=== PATIENT | male | born 1990 | race African-American/Black ===

== ENCOUNTER 2021-02-23 20:14 | Emergency (ER) | payer BC, SELFPAY | END 2021-02-23 20:45 | disposition home or self-care (01) | LOC: BURERS 20:14 | DX: G56.22 Lesion of ulnar nerve, left upper limb (principal); F17.210 Nicotine dependence, cigarettes, uncomplicated | CPT/HCPCS: 99281 ==

== ENCOUNTER 2021-03-19 21:04 | Emergency (ER) | payer BC ==
[2021-03-19] MEDS ORDERED: Dicyclomine 20 MG TAB ONE (21:43)
[2021-03-19] MEDS ORDERED: Ondansetron ODT 4 MG TAB ONE (21:43)
[2021-03-19] MEDS ORDERED: Mag-Al Plus 1200 MG/1200 MG/120 MG/30 ML UDCUP ONE (21:44)
[2021-03-19] MEDS ORDERED: Milk Of Magnesia 30 ML UDCUP ONE (21:44)
[2021-03-19] MEDS ORDERED: Lidocaine Viscous Sol 2% 15 ml UD Cup ONE (21:44)
[2021-03-19 22:48] LABS: #Basophils 0.1 thou/uL (0.0-0.2); #Eosinphils 0.3 thou/uL (0.0-0.7); #Lymphocytes 1.6 thou/uL (1.20-3.40); #Monocytes 0.5 thou/uL (0.11-0.59); #Neutrophils 3.1 thou/uL (1.40-6.50); %Eosinophils 5.3 % (0.0-10.0); %Lymphocytes 28.3 % (21.0-51.0); %Monocytes 8.2 % (0.0-10.0); %Neutrophils 56.1 % (42.0-75.0); Hemoglobin 14.6 g/dL (14.0-18.0); Mean Corpuscular Hemoglobin 31.3 pg (27.0-31.0); Mean Corpuscular Volume 89.4 fL (78.0-98.0); Mean Platelet Volume 8.9 fL (7.4-10.4); Platelet Count 214 thou/uL (130-400); RBC Distribution Width 11.5 % (11.5-14.5); Red Blood Cell (RBC) Count 4.67 mill/uL (4.70-6.10); White Blood Cell (WBC) Count 5.5 thou/uL (4.8-10.8)
[2021-03-19 23:08] LABS: ALT (SGPT) 18 U/L (8-55); AST (SGOT) 22 U/L (5-34); Albumin 4.1 g/dL (3.5-5.0); Alkaline Phosphatase 54 U/L (40-110); Anion Gap 16 mmol/L (10-20); BUN (Urea Nitrogen) 9 mg/dL (8.9-20.6); Bilirubin, Total 0.5 mg/dL (0.2-1.2); Calc. Creatinine Clearance 0 mL/min (70-130); Calcium 9.2 mg/dL (7.8-10.44); Carbon Dioxide 22 mmol/L (22-29); Chloride 105 mmol/L (98-107); Globulin 2.5 g/dL (2.4-3.5); Glucose 110 mg/dL (70-105); Lipase 25 U/L (8-78); Potassium 3.7 mmol/L (3.5-5.1); Protein, Total 6.6 g/dL (6.0-8.3); Sodium 139 mmol/L (136-145)
== END 2021-03-19 23:22 | disposition home or self-care (01) ==
LOC: BURERS 21:04
DX: K29.70 Gastritis, unspecified, without bleeding (principal); K08.89 Other specified disorders of teeth and supporting structures; R00.1 Bradycardia, unspecified; F17.210 Nicotine dependence, cigarettes, uncomplicated; Z79.899 Other long term (current) drug therapy
CPT/HCPCS: 80053; 83690; 85025; 93005; Q0162

== ENCOUNTER 2022-09-15 18:06 | Emergency (ER) | payer SELFPAY ==
[2022-09-15] MEDS ORDERED: Penicillin V Potassium 250 MG TAB ONE (18:59)
[2022-09-15] MEDS ORDERED: HYDROcodone/Acetaminophen 5/325 mg Tablet ONE (18:59)
== END 2022-09-15 19:02 | disposition home or self-care (01) ==
LOC: BURERS 18:06
DX: K08.89 Other specified disorders of teeth and supporting structures (principal); F17.210 Nicotine dependence, cigarettes, uncomplicated
CPT/HCPCS: 99282

== ENCOUNTER 2022-10-01 22:06 | Emergency (ER) | payer SELFPAY ==
[2022-10-01 23:09] LABS: Bilirubin Negative (Negative); Blood, Urine Small (Negative); Clarity Clear (Clear); Glucose, Urine (Dipstick) Negative (Negative); Ketone, Urine Negative (Negative); Leukocyte Negative (Negative); Nitrite Negative (Negative); Protein, Urine (Dipstick) Trace mg/dL (Neg-Trace); pH, Urine 5.5 (5.0-9.0)
[2022-10-01 23:13] LABS: Bacteria/HPF Rare-Few HPF (None Seen); Squamous Epithelial 0-3 HPF (0-3); WBC/HPF 0-3 HPF (0-3)
[2022-10-01 23:14] LABS: Mucous/LPF None Seen LPF (<2+)
[2022-10-01] MEDS ORDERED: Ibuprofen 200 MG TAB ONE (23:37)
[2022-10-01] MEDS ORDERED: predniSONE 20 MG TAB ONE (23:37)
[2022-10-03 10:56] LABS: Chlam.trachomatis by PCR,Urine Not Detected (NotDetected); GC N.gonorrhoeae PCR,UrineVOID Not Detected (NotDetected)
== END 2022-10-01 23:40 | disposition home or self-care (01) ==
LOC: BURERS 22:06
DX: M54.12 Radiculopathy, cervical region (principal); R30.0 Dysuria; F17.210 Nicotine dependence, cigarettes, uncomplicated
CPT/HCPCS: 81003; 81015; 87086; 87491; 87591; 99283; J7512

== ENCOUNTER 2025-02-28 03:20 | Emergency (ER) | payer OTHER, SELFPAY | END 2025-02-28 04:21 | disposition home or self-care (01) | LOC: BURERS 03:20 | DX: S60.222A Contusion of left hand, initial encounter (principal); F17.210 Nicotine dependence, cigarettes, uncomplicated; W22.09XA Striking against other stationary object, initial encounter | CPT/HCPCS: 99283 ==